=== PATIENT | female | born 1990 | race Caucasian/White ===

== ENCOUNTER 2016-10-30 17:01 | Emergency (ER) | payer OTHER ==
[2016-10-30 17:10] VITALS: BP 100/68
[2016-10-30] MEDS ORDERED: MECLIZINE 12.5 MG TABLET PO STA (17:20)
--- NOTE | 2016-10-30 17:21 | ED Physician Documentation ---
History of Present Illness - Stated complaint Stated Complaint: DIZZY - Chief complaint Chief Complaint: General - History obtained from History obtained from: Patient - History of Present Illness Timing: Other (26-year-old woman, active duty in the [employer]. She has had vertigo before and she developed spinning type dizziness this morning at 2 AM or rolling over in bed that has been persistent today and worse with head motion and she has had had some nausea. There is a possibility of . She had a headache but it is now gone. There is no associated upper respiratory symptoms, no fever.) Review of Systems Constitutional: denies: Fever, Chills, Fatigue, Weight Loss Ears: denies: Loss of hearing, Ear pain, Drainage/discharge Nose: denies: Rhinorrhea / runny nose, Congestion GI: reports: Nausea. denies: Vomiting, Diarrhea PD PAST MEDICAL HISTORY - Past Medical History Other Past Medical History: herpes - Past Surgical History Past Surgical History: Yes - Present Medications Home Medications: Ambulatory Orders Medication Instructions Recorded Confirmed Meclizine HCl 1 tab PO Q6H PRN #15 tab.chew 10/30/16 - Allergies Allergies/Adverse Reactions: Allergies Allergy/AdvReac Type Severity Reaction Status Date / Time tioconazole Allergy Intermediate redness Verified 10/30/16 17:26 [From Monistat 1 and itching (tioconazole)] - Social History Does the pt smoke?: No Smoking Status: Former smoker Does the pt drink ETOH?: Yes Does the pt have substance abuse?: No - Immunizations Immunizations are current?: Yes - POLST Patient has POLST: No PD ED PE NORMAL - Vitals Vital signs reviewed: Yes - General General: Alert and oriented X 3, No acute distress - HEENT HEENT: PERRL, EOMI, Ears normal, Moist mucous membranes, Pharynx benign, Dentition benign - Neck Neck: Supple, no meningeal sign, No bony TTP - Neuro Neuro: Alert and oriented X 3, bag bleacher 2-12 intact, No motor deficit, No sensory deficit, Normal speech - Psych Psych: Normal mood, Normal affect Results - Vitals Vitals: Vital Signs - 24 hr 10/30/16 17:07 Temperature 36.9 C Heart Rate 64 Respiratory 18 Rate Blood Pressure 100/68 O2 Saturation 100 Oxygen O2 Source Room air - Labs Labs: Laboratory Tests 10/30/16 17:35 Ur Specific [place] >=1.030 H Urine HCG, Qual NEGATIVE Departure - Departure Disposition: Home, Self Care Clinical Impression: Vertigo Condition: Good Record reviewed to determine appropriate education?: Yes Instructions: ED Vertigo Unspecified Prescriptions: Meclizine HCl 1 tab PO Q6H PRN #15 tab.chew PRN Reason: Vertigo Comments: Call your doctor to arrange a follow-up appointment, make the next available appointment. In the interim, return anytime if worse or if new symptoms develop. Forms: Activity restrictions
[2016-10-30] MEDS ORDERED: MECLIZINE 12.5 MG TABLET PO ONE (17:29)
[2016-10-30 17:47] LABS: HCG UR QUAL NEGATIVE
== END 2016-10-30 18:07 | disposition home or self-care (01) ==
LOC: ED 17:01
DX: R42 Dizziness and giddiness (principal); Z87.891 Personal history of nicotine dependence
CPT/HCPCS: 81025; 99283; A9270

== ENCOUNTER 2017-08-05 14:22 | Outpatient (CLI) | payer OTHER | END 2017-08-05 14:23 | disposition home or self-care (01) | LOC: SC 14:22 | PROVIDERS: ATTEND Internal Medicine Pulmonary Disease | DX: G47.30 Sleep apnea, unspecified (principal); G47.10 Hypersomnia, unspecified; G47.8 Other sleep disorders; R06.83 Snoring; E66.9 Obesity, unspecified; Z68.33 Body mass index [BMI] 33.0-33.9, adult | CPT/HCPCS: 99203; 99212 ==